=== PATIENT | female | born 1990 | race African-American/Black ===

== ENCOUNTER 2023-10-27 03:27 | Emergency (ER) | payer OTHER ==
[2023-10-27 03:37] VITALS: BP 117/79; PULSE 103; RESP 20; TEMP 99.1; BMI 28.6
[2023-10-27] MEDS ORDERED: DEXAMETHASONE SOD PHOSPHATE 10 MG/1 ML VIAL IM ONE (04:36)
[2023-10-27] MEDS ORDERED: DEXAMETHASONE SOD PHOSPHATE 10 MG/1 ML VIAL ONE (05:41)
[2023-10-27] MEDS ORDERED: IBUPROFEN 600 MG TABLET (FP) PO ONE ×2 (05:59→06:01)
== END 2023-10-27 06:07 | disposition home or self-care (01) ==
LOC: JER 03:27
PROC: 3E023GC Introduction of Other Therapeutic Substance into Muscle, Percutaneous Approach (ICD-10-PCS; principal; 2023-10-27)
DX: R13.10 Dysphagia, unspecified (principal); J02.9 Acute pharyngitis, unspecified; Z20.822 Contact with and (suspected) exposure to COVID-19
CPT/HCPCS: 0241U-QW; 87651; 99284-25; J1100